=== PATIENT | female | born 1965 | race Two or more races ===

== ENCOUNTER 2020-03-16 01:28 | Emergency (ER) | payer SELFPAY ==
[~2020-03-16] VITALS: Ht 157.5 cm; Wt 135.0 kg
[2020-03-16 01:40] VITALS: BP 163/92
--- NOTE | 2020-03-16 01:52 | PHYS DOC ---
Past Medical History Past Medical History: Asthma, Hypertension Smoking Status: Never Smoker Drug Use: None General Adult EDM: Chief Complaint: KNEE SWELLING HPI: HPI: Patient is a 55 year old female who presents with a 2-day history of left foot and ankle pain. Patient has chronic left knee pain and has been favoring the left foot and ankle the last few days and noted some swelling and pain left foot and ankle. Patient denies any other trauma. Patient denies any swelling of the calf. There is no fever there is no shortness of breath. Patient states the pain is 9 out of 10 with ambulation. And radiates up the foot. Review of Systems: Review of Systems: Constitutional: Denies fever or chills. [] Eyes: Denies change in visual acuity. [] HENT: Denies nasal congestion or sore throat. [] Respiratory: Denies cough or shortness of breath. [] Cardiovascular: Denies chest pain or edema. [] GI: Denies abdominal pain, nausea, vomiting, bloody stools or diarrhea. [] : Denies dysuria. [] Musculoskeletal: Denies back pain or joint pain. [] Integument: Denies rash. [] Neurologic: Denies headache, focal weakness or sensory changes. [] Endocrine: Denies polyuria or polydipsia. [] Lymphatic: Denies swollen glands. [] Psychiatric: Denies depression or anxiety. [] Heart Score: Risk Factors: Risk Factors: DM, Current or recent (<one month) smoker, HTN, HLP, family history of CAD, obesity. Risk Scores: Score 0 - 3: 2.5% MACE over next 6 weeks - Discharge Home Score 4 - 6: 20.3% MACE over next 6 weeks - Admit for Clinical Observation Score 7 - 10: 72.7% MACE over next 6 weeks - Early Invasive Strategies Physical Exam: PE: Constitutional: Well developed, well nourished, no acute distress, non-toxic appearance. HENT: No trismus, external ears normal Eyes: Conjunctiva clear, EOMI Neck: Normal range of motion, no tenderness, supple, no stridor. Cardiovascular: Regular rate/rhythm, peripheral pulse intact, LEAF BINNER intact Lungs & Thorax: No respiratory distress Abdomen: No distension Skin: Diffuse: Intact, no rash Back: Full ROM Extremities: Mild swelling and tenderness to lateral left foot and lateral left ankle. Neurovascular intact distally. Negative Homans sign. No erythema, warmth. Mild tenderness to left knee. Neurologic: Alert and oriented X 3, normal motor function, , no focal deficits noted. Psychologic: Affect normal, judgement normal, mood normal. Current Patient Data: Vital Signs: Vital Signs Date Time Temp Pulse Resp B/P (MAP) Pulse Ox O2 Delivery O2 Flow Rate FiO2 03/16/20 01:40 97.5 99 18 163/92 (115) 100 Room Air 97.5 EKG: EKG: [] Radiology/Procedures: Radiology/Procedures: [][facility] [address] [place] [address] IMAGING REPORT Signed PATIENT: SHAYLA TIPTONACCOUNT: [id number] : 1965 LOCATION: ER AGE: 55 SEX: F EXAM STATUS: REG ER ORD. PHYSICIAN: YANI ANDERSEN MD REASON: foot pain PROCEDURE: ANKLE LEFT 3V Left foot 3 views: Reason for examination: Foot and ankle pain. No acute fracture or dislocation is seen. The bone density is normal. No abnormal periosteal reaction is seen. Joint spaces are maintained. There does appear to be soft tissue edema. IMPRESSION: No acute bony abnormality evident in the left foot. Soft tissue edema is present. Left ankle 3 views: No acute fracture or dislocation is seen. The bone density is normal. No abnormal periosteal reaction is seen. Joint spaces are maintained. Soft tissue edema is present around the ankle. IMPRESSION: No acute bony abnormality at the left ankle. Soft tissue edema is present. Electronically signed by: Magi Newell MD (03/16/2020 2:33 AM) [id number] DICTATED and SIGNED BY: MAGI NEWELL MD DATE: 03/16/20 0233 Course & Med Decision Making: Course & Med Decision Making Pertinent Labs and Imaging studies reviewed. (See chart for details) [] 55-year-old female presents with left foot and ankle swelling and pain. Pain is most likely result of favoring that because her left knee was bothering her which is chronic. There is mild swelling on exam and on x-ray. No evidence of fracture. No warmth or erythema or systemic fever to suggest septic arthritis. Patient given Tejinder wrap and crutches and orthopedic follow-up. Apollo Disclaimer: Apollo Disclaimer: This electronic medical record was generated, in whole or in part, using a voice recognition dictation system. Departure Departure Impression: Primary Impression: Sprain of left foot Additional Impression: Left ankle sprain Disposition: HOME, SELF-CARE Condition: STABLE Referrals: JUAN MIGUEL KUHN MD 2-3 days Patient Instructions: Ankle Sprain, Crutch Use Additional Instructions: EMERGENCY DEPARTMENT GENERAL DISCHARGE INSTRUCTIONS Thank you for coming to [facility] Emergency Department (ED) today and trusting us with you care. We trust that you had a positivie experience in our Emergency Department. If you wish to speak to the department management, you may call the Director at [phone]. YOUR FOLLOW UP INSTRUCTIONS ARE FOLLOWS: 1. Do you have a private Doctor? If you do not have a private doctor, please ask for a resource list of physicians or clinics that may be able to assist you with follow up care. 2. The Emergency Physicain has interpreted your x-rays. The X-Ray specialist will also review them. If there is a change in the findings, you will be notified in 48 hours when at all possible. 3. A lab test or culture has been done, your results will be reviewed and you will be notified if you need a change in treatment. ADDITIONAL INSTRUCTIONS AND INFORMATION: 1. Your care today has been supervised by a physician who is specially trained in emergency care. Many problems require more than one evaluation for a complete diagnosis and treatment. We recommend that you schedule your follow up appointment as recommended to ensure complete treatment of you illness or injury. If you are unable to obtain follow up care and continue to have a problem, or if your consition worsens, we recommend that you return to the ED. 2. We are not able to safely determine your condition over the phone nor are we able to give sound medical advice over the phone. For these safety reasons, if you call for medical advice we will ask you to come to the ED for further evaluation. 3. If you have any questions regarding these discharge instructions please call the ED at [phone]. SAFETY INFORMATION: In the interest of safety, wellness, and injury prevention; we encourage you to wear your sealbelt, if you smoke; quite smoking, and we encourage family to use a protective helmet for bicycling and other sporting events that present an increased risk for head injury. IF YOUR SYMPTOMS WORSEN OR NEW SYMPTOMS DEVELOP, OR YOU HAVE CONCERNS ABOUT YOUR CONDITION; OR IF YOUR CONDITION WORSENS WHILE YOU ARE WAITING FOR YOUR FOLLOW UP APPOINTMENT; EITHER CONTACT YOUR PRIMARY CARE DOCTOR, THE PHYSICIAN WHOSE NAME AND NUMBER YOU WERE GIVEN, OR RETURN TO THE ED IMMEDIATELY. Scripts Hydrocodone/Apap 5-325 (NORCO 5-325 TABLET) 1 Each Tablet 1-2 EACH PO PRN Q6HRS PRN for PAIN, #15 as needed for pain Prov: YANI ANDERSEN MD 03/16/20 Ibuprofen (IBUPROFEN) 600 Mg Tablet 600 MG PO PRN Q6HRS PRN for INFLAMMATION, #30 TAB Prov: YANI ANDERSEN MD 03/16/20 Justicifation of Admission Dx: Justifications for Admission: Justification of Admission Dx: N/A YANI ANDERSEN MD Mar 16, 2020 01:52
[2020-03-16] MEDS ORDERED: HYDROcodone/APAP 7.5/325MG 1 TAB TABLET PO ONE (02:15)
[2020-03-16] MEDS ORDERED: HYDROcodone/APAP 7.5/325MG 1 TAB TABLET ONE (02:26)
--- NOTE | 2020-03-16 02:36 | RAD ---
Left foot 3 views: Reason for examination: Foot and ankle pain. No acute fracture or dislocation is seen. The bone density is normal. No abnormal periosteal reaction is seen. Joint spaces are maintained. There does appear to be soft tissue edema. IMPRESSION: No acute bony abnormality evident in the left foot. Soft tissue edema is present. Left ankle 3 views: No acute fracture or dislocation is seen. The bone density is normal. No abnormal periosteal reaction is seen. Joint spaces are maintained. Soft tissue edema is present around the ankle. IMPRESSION: No acute bony abnormality at the left ankle. Soft tissue edema is present. Electronically signed by: Magi Woodson MD (03/16/2020 2:33 AM) [id number]
[2020-03-16] MEDS ORDERED: HYDR-3164 PO (02:47)
[2020-03-16] MEDS ORDERED: IBUP-1007 PO (02:47)
== END 2020-03-16 02:51 | disposition home or self-care (01) ==
LOC: ER 01:28
DX: S93.692A Other sprain of left foot, initial encounter (principal); S93.492A Sprain of other ligament of left ankle, initial encounter; R60.0 Localized edema; J45.909 Unspecified asthma, uncomplicated; I10 Essential (primary) hypertension; X58.XXXA Exposure to other specified factors, initial encounter; Y93.89 Activity, other specified; Y92.89 Other specified places as the place of occurrence of the external cause; Y99.8 Other external cause status
CPT/HCPCS: 73610; 73630; 99284